=== PATIENT | male | born 1980 | race Asian ===

== ENCOUNTER 2019-02-05 11:50 | Day surgery (SDC) | payer OTHER ==
[2019-02-05] MEDS ORDERED: LIDOCAINE 4% SOLUTION 50 ML BTL (13:39)
[2019-02-05] MEDS ORDERED: FENTAnyl 50 MCG/ML VIAL (14:47)
[2019-02-05] MEDS ORDERED: MIDAZOLAM 1 MG/ML 2 ML INJ ×2 (14:47)
== END 2019-02-05 15:16 | disposition home or self-care (01) ==
LOC: GIL 11:50
DX: K29.50 Unspecified chronic gastritis without bleeding (principal)
CPT/HCPCS: 43239; 88305; 88312